=== PATIENT | female | born 1940 | race Caucasian/White ===

== ENCOUNTER 2017-11-17 12:59 | Outpatient (CLI) | payer MEDICARE, BC ==
--- NOTE | 2017-11-17 15:33 | MRI ---
MRI LUMBAR SPINE WITHOUT CONTRAST: Date: 11/17/17 HISTORY: Lumbar radiculopathy, M54.16. COMPARISON: None. FINDINGS: The aortic contour is nonaneurysmal. No retroperitoneal adenopathy. Parapelvic cysts of both kidneys. Left renal vein is retroaortic. Paraspinal musculature is normal. Background marrow signal is normal. No infiltrative process. There is hemangioma within the L1 vertebral body. Conus medullaris terminates at the superior end plate of L2. Levels are as follows: L1-2: Low grade circumferential disc bulge. Mild facet arthropathy. No significant neural foraminal or spin al canal narrowing. L2-3: Mild circumferential disc bulge and disc desiccation. Hypertrophic facet changes. There is moderate l eft and mild right-sided neural foraminal narrowing. The spinal canal measures approximately 8.0 mm. There is abutment at the exiting left L3 nerve root. L3-4: Mild disc desiccation. Circumferential disc bulge. Posterior disc osteophyte complex is present. Ther e is moderate right and left-sided neural foraminal narrowing with abutment of both exiting nerve ricardo ts. The spinal canal measures approximately 6.0 mm. L4-5: Moderate disc desiccation. Moderate facet arthropathy. There is 2.0 mm anterolisthesis of L4 over l5. Circumferential disc bulge is present. There is abutment of both exiting nerve roots due to the circ umferential disc bulge. L5-S1: Moderate facet arthrosis. Mild disc desiccation. No significant neural foraminal or spinal canal narr owing. 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 POS: CODEY
== END 2017-11-17 13:00 | disposition home or self-care (01) ==
LOC: TBSIIMAG 12:59
PROVIDERS: ATTEND Neurological Surgery
DX: M47.26 Other spondylosis with radiculopathy, lumbar region (principal)
CPT/HCPCS: 72148

== ENCOUNTER 2023-04-21 11:57 | Emergency (ER) | payer MEDICARE, BC ==
[2023-04-21 12:50] LABS: #Basophils 0.1 thou/uL (0.0-0.2); #Eosinphils 0.2 thou/uL (0.0-0.7); %Basophils 0.3 % (0.0-1.0); %Eosinophils 0.9 % (0.0-10.0); %Lymphocytes 9.8 % (21.0-51.0); %Neutrophils 83.4 % (42.0-75.0); Hematocrit 34.8 % (36.0-47.0); Hemoglobin 11.1 g/dL (12.0-16.0); Mean Corpuscular HGB CONC 31.9 g/dL (32.0-36.0); Mean Corpuscular Hemoglobin 30.5 pg (27.0-31.0); Mean Corpuscular Volume 95.6 fl (78.0-98.0); Platelet Count 173 10x3/uL (130-400); RBC Distribution Width 14.2 % (11.5-14.5); Red Blood Cell (RBC) Count 3.64 mill/uL (4.20-5.40); White Blood Cell (WBC) Count 20.4 10x3/uL (4.8-10.8)
[2023-04-21 13:16] LABS: ALT (SGPT) 20 U/L (8-55); AST (SGOT) 27 U/L (5-34); Albumin 3.2 g/dL (3.4-4.8); Alkaline Phosphatase 64 U/L (40-110); Anion Gap 12 mmol/L (10-20); BUN (Urea Nitrogen) 23 mg/dL (9.8-20.1); Bilirubin, Total 0.6 mg/dL (0.2-1.2); Calc. Creatinine Clearance 0 mL/min (70-130); Calcium 7.5 mg/dL (7.8-10.44); Carbon Dioxide 21 mmol/L (23-31); Chloride 112 mmol/L (98-107); Estimated GFR 44; Glucose 132 mg/dL (83-110); Potassium 4.1 mmol/L (3.5-5.1); Protein, Total 5.2 g/dL (5.8-8.1); Sodium 141 mmol/L (136-145)
[2023-04-21 13:20] LABS: Troponin I Less than 0.010 ng/mL (< 0.028)
[2023-04-21] MEDS ORDERED: Iopamidol-370 76% 500 ML MDV (1 ML CHARGE) ONE ×2 (14:12→14:19)
== END 2023-04-21 14:15 | disposition short-term general hospital (02) ==
LOC: ERS 11:57
DX: I71.019 Dissection of thoracic aorta, unspecified (principal); I71.02 Dissection of abdominal aorta; I71.20 Thoracic aortic aneurysm, without rupture, unspecified; I30.9 Acute pericarditis, unspecified; I10 Essential (primary) hypertension
CPT/HCPCS: 36430; 71275; 74174; 74177; 80053; 83605; 83880; 84484; 85025; 86850; 86900; 86901; 86920; 93005; P9016; 36415; Q9967